=== PATIENT | male | born 1965 | race Caucasian/White ===

== ENCOUNTER 2021-09-26 21:52 | Emergency (ER) | payer SELFPAY ==
[~2021-09-26] VITALS: Ht 180.3 cm; Wt 83.9 kg
[2021-09-26 21:52] VITALS: BP 121/79
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
--- NOTE | 2021-09-26 22:00 | NUR ---
SEEN AND EXAMINED BY [facility]
[2021-09-26 22:30] VITALS: BP 121/79
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
== END 2021-09-26 22:30 ==
LOC: MED 21:52
DX: Z02.89 Encounter for other administrative examinations (principal); Z98.890 Other specified postprocedural states; V89.2XXA Person injured in unspecified motor-vehicle accident, traffic, initial encounter; Y93.89 Activity, other specified; Y92.410 Unspecified street and highway as the place of occurrence of the external cause; Y99.8 Other external cause status
CPT/HCPCS: 99283